=== PATIENT | female | born 1995 | race Caucasian/White ===

== ENCOUNTER 2018-01-05 18:47 | Emergency (ER) | payer OTHER ==
[~2018-01-05] VITALS: Ht 165.1 cm; Wt 104.3 kg
--- NOTE | 2018-01-05 19:02 | NUR ---
Dr. Parish HOPKINS MD at bedside for MSE.
[2018-01-05] MEDS ORDERED: PENICILLIN V POTASSIUM 500 MG TABLET ONE (19:12)
[2018-01-05] MEDS ORDERED: HYDROCODONE/APAP 5-325MG TABLET ONE (19:12)
[2018-01-05 19:14] VITALS: BP 138/77
[2018-01-05] MEDS ORDERED: HYDROCODONE/APAP 5-325MG TABLET PO ONE (19:15)
[2018-01-05] MEDS ORDERED: PENICILLIN V POTASSIUM 500 MG TABLET PO ONE (19:15)
--- NOTE | 2018-01-05 19:15 | NUR ---
Patient discharged to home in stable conditon. Written and verbal after care instructions given. Patient verbalizes understanding of instructions. Pt ambulated out of ER in steady gait. All belongings with pt. VSS. NAD noted. Pt has family member to drive her home.
== END 2018-01-05 19:15 | disposition home or self-care (01) ==
LOC: ER 18:49
DX: K08.89 Other specified disorders of teeth and supporting structures (principal)
CPT/HCPCS: A4663